=== PATIENT | female | born 2005 | race Caucasian/White ===

== ENCOUNTER 2024-01-13 12:51 | Emergency (ER) | payer MEDICAID, OTHER ==
[~2024-01-13] VITALS: Ht 162.6 cm; Wt 81.6 kg
[2024-01-13 13:07] VITALS: TEMP 101.3
[2024-01-13] MEDS: PSEUDOEPHEDRINE HCL 30 MG TABLET PO ONE (14:50)
[2024-01-13] MEDS: IBUPROFEN 400 MG TABLET PO ONE (14:50)
[2024-01-13] MEDS ORDERED: IBUPROFEN 400 MG TABLET ONE (14:53)
[2024-01-13] MEDS ORDERED: PSEUDOEPHEDRINE HCL 30 MG TABLET ONE (14:54)
[2024-01-13 15:10] VITALS: BP 118/70; O2SAT 97
== END 2024-01-13 15:02 | disposition home or self-care (01) ==
LOC: ER 12:58
DX: B34.9 Viral infection, unspecified (principal); Z20.822 Contact with and (suspected) exposure to COVID-19